=== PATIENT | male | born 1955 | race African-American/Black ===

== ENCOUNTER 2019-12-05 11:19 | Emergency (ER) | payer BC ==
[~2019-12-05] VITALS: Ht 190.5 cm; Wt 137.0 kg
[2019-12-05 11:20] VITALS: Ht 190.5 cm; Wt 137.0 kg
[2019-12-05 12:16] LABS: BASOPHIL % 0.5 % (0-2); PLATELET COUNT 248 x10^3mcL (130-400); RED CELL DISTRIBUTION WIDTH 15.2 % (11.5-14.5)
[2019-12-05 12:25] LABS: CALCIUM 8.7 mg/dL (8.5-10.1); CARBON DIOXIDE 22.6 mmol/L (21-32); CHLORIDE SERUM 102 mmol/L (98-107); CREATININE SERUM 1.1 mg/dL (0.7-1.3); GFR1 > 60 mL/min; GLUCOSE SERUM 218 mg/dL (74-106); POTASSIUM SERUM 3.8 mmol/L (3.5-5.1); SODIUM SERUM 136 mmol/L (136-145)
[2019-12-05 12:38] LABS: ALBUMIN 3.9 g/dL (3.4-5.0); ALKALINE PHOSPHATASE 109 U/L (46-116); ALT/SGPT 61 U/L (16-63); AST/SGOT 23 U/L (15-37); HDL CHOLESTEROL 45 mg/dL (40-60); LIPASE 188 IU/L (73-393); MAGNESIUM 2.1 mg/dL (1.8-2.4); T4(THYROXINE) 8.3 ug/dL (4.7-13.3); TOTAL PROTEIN, SERUM 7.4 g/dL (6.4-8.2)
[2019-12-05 12:51] LABS: CHOLESTEROL 212 mg/dL (<200)
[2019-12-05 13:36] LABS: UA SPECIFIC GRAVITY <=1.005 (1.005-1.035); microscopic required? YES; urine erythrocyte TRACE (NEGATIVE)
[2019-12-05 13:46] LABS: AMPHETAMINE QUAL UR NONE DETECTED (See below)
[2019-12-05 13:59] VITALS: BP 120/65
== END 2019-12-05 13:59 | disposition home or self-care (01) ==
LOC: ED 11:19
PROVIDERS: Emergency Medicine
DX: I10 Essential (primary) hypertension (principal); R00.2 Palpitations
CPT/HCPCS: 83880; Q0092

== ENCOUNTER 2019-12-08 21:51 | Emergency (ER) | payer BC ==
[~2019-12-08] VITALS: Ht 190.5 cm; Wt 137.0 kg
[2019-12-08 22:16] VITALS: Ht 190.5 cm; Wt 137.0 kg
[2019-12-08 23:09] VITALS: BP 167/87
== END 2019-12-08 23:09 | disposition home or self-care (01) ==
LOC: ED 21:51
DX: I10 Essential (primary) hypertension (principal); R10.13 Epigastric pain; Z98.890 Other specified postprocedural states